=== PATIENT | female | born 1960 | race Hispanic/Latino ===

== ENCOUNTER → 2021-11-28 | Outpatient (CLI) | payer OTHER | END | disposition home or self-care (01) | LOC: SHCH 09:43 | PROVIDERS: ATTEND Internal Medicine Cardiovascular Disease | DX: R07.9 Chest pain, unspecified (principal) | CPT/HCPCS: 93306; 93970 ==

== ENCOUNTER → 2022-01-16 | Outpatient (CLI) | payer OTHER ==
[2022-01-16 12:34] LABS: BASOPHILS % (AUTO) 0.5 % (0.0-5.0); EOSINOPHILS % (AUTO) 1.1 % (0.0-8.0); HEMATOCRIT 43.1 % (36-48); LYMPHOCYTES % (AUTO) 19.5 % (21.0-51.0); MEAN CORPUSCULAR HEMOGLOBIN 29.5 pg (27.0-33.0); MEAN CORPUSCULAR HGB CONC 31.8 g/dL (32.0-36.0); MEAN CORPUSCULAR VOLUME 92.7 fL (79-99); MONOCYTES % (AUTO) 5.5 % (3.0-13.0); NEUTROPHILS % (AUTO) 73.2 % (40.0-77.0); PLATELET COUNT (AUTO) 243 K/uL (130-400); RED BLOOD CELL COUNT(AUTO) 4.65 MIL/uL (4.00-5.50); RED CELL DISTRIBUTION WIDTH 13.2 % (11.0-15.5); WHITE BLOOD COUNT (AUTO) 6.5 K/uL (4.8-10.8)
[2022-01-16 12:43] LABS: CREATININE 0.8 mg/dL (0.5-1.5); POTASSIUM 3.8 mmol/L (3.5-5.1)
[2022-01-16 12:54] LABS: INR 2.04 (0.85-1.15); PROTHROMBIN TIME 21.4 SEC (9.6-11.6)
[2022-01-16 12:55] LABS: PARTIAL THROMBOPLASTIN TIME 35.7 SEC (26.3-35.5)
== END | disposition home or self-care (01) ==
LOC: LAB 08:31
PROVIDERS: ATTEND Internal Medicine Cardiovascular Disease
DX: I87.1 Compression of vein (principal); I87.2 Venous insufficiency (chronic) (peripheral); R60.0 Localized edema; Z86.718 Personal history of other venous thrombosis and embolism; Z79.01 Long term (current) use of anticoagulants; Z79.899 Other long term (current) drug therapy
CPT/HCPCS: 36415; 80048; 85025; 85610; 85730

== ENCOUNTER 2022-03-18 07:25 | Day surgery (SDC) | payer OTHER ==
[2022-03-14 11:00] LABS: BASOPHILS % (AUTO) 0.7 % (0.0-5.0); EOSINOPHILS % (AUTO) 0.5 % (0.0-8.0); HEMATOCRIT 44.5 % (36-48); LYMPHOCYTES % (AUTO) 21.1 % (21.0-51.0); MEAN CORPUSCULAR HEMOGLOBIN 29.1 pg (27.0-33.0); MEAN CORPUSCULAR HGB CONC 31.7 g/dL (32.0-36.0); MEAN CORPUSCULAR VOLUME 91.9 fL (79-99); MONOCYTES % (AUTO) 4.3 % (3.0-13.0); NEUTROPHILS % (AUTO) 73.3 % (40.0-77.0); PLATELET COUNT (AUTO) 231 K/uL (130-400); RED BLOOD CELL COUNT(AUTO) 4.84 MIL/uL (4.00-5.50); RED CELL DISTRIBUTION WIDTH 12.8 % (11.0-15.5); WHITE BLOOD COUNT (AUTO) 7.7 K/uL (4.8-10.8)
[2022-03-14 11:13] LABS: INR 2.46 (0.85-1.15); PROTHROMBIN TIME 25.5 SEC (9.6-11.6)
[2022-03-14 11:14] LABS: PARTIAL THROMBOPLASTIN TIME 36.6 SEC (26.3-35.5)
[2022-03-14 11:16] LABS: CREATININE 0.7 mg/dL (0.5-1.5); POTASSIUM 4.2 mmol/L (3.5-5.1)
[2022-03-15 10:42] VITALS: BP 132/72
[2022-03-18] VITALS (21 sets, daily range): BP systolic 98–138; BP diastolic 50–72
[~2022-03-18] VITALS: Ht 168.9 cm; Wt 90.4 kg
[~2022-03-18 07:25] MED LIST: TOPI50TA24 PO; TRAZ150T79 PO; WARF-57 PO; WARF7.5T49 PO
[2022-03-18] MEDS ORDERED: 0.9%NACL 1000ML 1,000 ML IV ONE (07:43)
[2022-03-18 08:16] LABS: INR 1.09 (0.85-1.15); PROTHROMBIN TIME 11.8 SEC (9.6-11.6)
[2022-03-18 08:17] LABS: PARTIAL THROMBOPLASTIN TIME 30.5 SEC (26.3-35.5)
[2022-03-18] MEDS ORDERED: BIOT10006 PO (08:31)
[2022-03-18] MEDS ORDERED: VITA-348 PO (08:31)
[2022-03-18] MEDS ORDERED: CYCL-309 PO (08:31)
[2022-03-18] MEDS ORDERED: ENOX120D SQ (08:31)
[2022-03-18] MEDS ORDERED: ZINC50TA15 PO (08:31)
[2022-03-18] MEDS ORDERED: ASCO500C6 PO (08:31)
[2022-03-18] MEDS ORDERED: ERGO500093 PO (08:31)
[2022-03-18] MEDS ORDERED: CALC-1105 PO (08:31)
[2022-03-18] MEDS ORDERED: IODIXANOL 320 MG/ML 100 ML VIAL ONE ×2 (08:56→10:12)
[2022-03-18] MEDS ORDERED: NITROGLYCERIN 50MG VIAL ONE (08:56)
[2022-03-18] MEDS ORDERED: FENTANYL CITRATE PF 50 MCG/1 ML 2ML VIAL ONE ×2 (08:56→10:12)
[2022-03-18] MEDS ORDERED: LIDOCAINE HCL 400MG/20ML VIAL ONE (08:56)
[2022-03-18] MEDS ORDERED: MIDAZOLAM HCL 1 MG/ML 2ML VIAL ONE ×3 (08:56→10:56)
[2022-03-18] MEDS ORDERED: HEPARIN 10,000 UNIT/10ML (1,000 UNIT/ML) VIAL ONE ×2 (08:56→10:12)
[2022-03-18] MEDS ORDERED: GLUCAGON 1MG KIT 1 MG ML IM PRN (11:30)
[2022-03-18] MEDS ORDERED: DEXTROSE 50%-WATER 50 ML DISP.SYRIN IV PRN (11:30)
[2022-03-18] MEDS ORDERED: CLOPIDOGREL 300MG TAB ONE (11:49)
[2022-03-18] MEDS ORDERED: ATROPINE 1MG SYG IVP ONE (12:44)
== END 2022-03-18 16:20 | disposition home or self-care (01) ==
LOC: DAH 07:25
PROVIDERS: ATTEND Internal Medicine Cardiovascular Disease
DX: I87.1 Compression of vein (principal); D72.0 Genetic anomalies of leukocytes; I87.2 Venous insufficiency (chronic) (peripheral); E66.9 Obesity, unspecified; Z79.01 Long term (current) use of anticoagulants; Z79.899 Other long term (current) drug therapy; Z86.718 Personal history of other venous thrombosis and embolism; Z90.710 Acquired absence of both cervix and uterus; Z90.49 Acquired absence of other specified parts of digestive tract; Z98.890 Other specified postprocedural states; Z82.49 Family history of ischemic heart disease and other diseases of the circulatory system; Z83.3 Family history of diabetes mellitus; Z80.9 Family history of malignant neoplasm, unspecified; Z68.32 Body mass index [BMI] 32.0-32.9, adult
CPT/HCPCS: 80048; 85025; 85610 ×2; 85730 ×2; 36415 ×2; 37238; 37239; 36012; 75822; 37252; 37253 ×5; 85347; C1876 ×2; C1894 ×4; C1769 ×2; C1725; C1753; A4663; J3010; J3490 ×2; J7030; J1644 ×2; J2250 ×2; Q9967; A4215; A6402; A4657; A4222; A6260; A4221; A4216; A4606; A4223 ×3; 99156; 99157; J0461

== ENCOUNTER → 2022-10-01 | Outpatient (CLI) | payer OTHER ==
[~2022-10-01] MED LIST changes: +ASCO500C6 PO; +BIOT10006 PO; +CALC-1105 PO; +CYCL-309 PO; +ENOX120D SQ; +ERGO500093 PO; +TOPI-255 PO; -TOPI50TA24 PO; +VITA-348 PO; +ZINC50TA15 PO
[2022-10-01 16:30] LABS: CREATININE 0.8 mg/dL (0.5-1.5); POTASSIUM 4.1 mmol/L (3.5-5.1)
== END | disposition home or self-care (01) ==
LOC: LAB 13:05
PROVIDERS: ATTEND Internal Medicine Cardiovascular Disease
DX: I20.0 Unstable angina (principal)
CPT/HCPCS: 36415; 80048

== ENCOUNTER → 2022-10-18 | Outpatient (CLI) | payer OTHER ==
[~2022-10-18] MED LIST changes: +IOHEXOL 350 MG/ML 100ML INFUS..BTL IV ONE
== END | disposition home or self-care (01) ==
LOC: RAH 07:52
PROVIDERS: ATTEND Internal Medicine Cardiovascular Disease
DX: I20.0 Unstable angina (principal)
CPT/HCPCS: 75574; Q9967

== ENCOUNTER 2023-05-28 13:14 | Emergency (ER) | payer BC, OTHER ==
[~2023-05-28] VITALS: Ht 167.6 cm; Wt 91.6 kg
[~2023-05-28 13:14] MED LIST changes: -IOHEXOL 350 MG/ML 100ML INFUS..BTL IV ONE; -TOPI-255 PO; +TOPI-97 PO
[2023-05-28 18:17] LABS: BASOPHILS # (AUTO) 0.05 K/uL (0.00-0.20); BASOPHILS % (AUTO) 0.6 % (0.0-5.0); EOSINOPHILS # (AUTO) 0.09 K/uL (0.00-0.70); EOSINOPHILS % (AUTO) 1.1 % (0.0-8.0); HEMATOCRIT 41.9 % (36-48); IMMATURE GRANULOCYTE ABSOLUTE 0.02 K/uL (0-1); LYMPHOCYTES # (AUTO) 1.7 K/uL (1.0-4.8); MEAN CORPUSCULAR HEMOGLOBIN 29.4 pg (27.0-33.0); MEAN CORPUSCULAR HGB CONC 32.5 g/dL (32.0-36.0); MEAN CORPUSCULAR VOLUME 90.5 fL (79-99); MONOCYTES # (AUTO) 0.5 K/uL (0.1-1.0); MONOCYTES % (AUTO) 6.6 % (3.0-13.0); NEUTROPHILS # (AUTO) 5.6 K/uL (1.8-7.7); NEUTROPHILS % (AUTO) 70.4 % (40.0-77.0); PLATELET COUNT (AUTO) 217 K/uL (130-400); RED BLOOD CELL COUNT(AUTO) 4.63 MIL/uL (4.00-5.50)
[2023-05-28 18:26] LABS: CREATININE 0.9 mg/dL (0.5-1.0); POTASSIUM 3.9 mmol/L (3.5-5.1)
[2023-05-28 18:31] LABS: INR 1.39 (0.85-1.15)
[2023-05-28 18:33] LABS: PARTIAL THROMBOPLASTIN TIME 31.8 SEC (26.3-35.5)
[2023-05-28] MEDS ORDERED: IOHEXOL-350 75 ML VIAL IV ONE (20:03)
[2023-05-28] MEDS: ENOXAPARIN SODIUM 100 MG/1 ML SQ ONE (20:06)
[2023-05-28 22:03] VITALS: BP 126/60; PULSE 74; RESP 18; O2SAT 99
== END 2023-05-28 22:06 | disposition home or self-care (01) ==
LOC: EDH 13:14
DX: I82.402 Acute embolism and thrombosis of unspecified deep veins of left lower extremity (principal); I25.10 Atherosclerotic heart disease of native coronary artery without angina pectoris; Z79.01 Long term (current) use of anticoagulants; Z79.899 Other long term (current) drug therapy
CPT/HCPCS: 99285; 71270; 93971; 84484; 80048; 85025; 85378; 85610; 85730; 36415; 93005; 96372; J1650; Q9967

== ENCOUNTER → 2023-06-25 | Outpatient (CLI) | payer OTHER | END | disposition home or self-care (01) | LOC: OIH 09:23 | PROVIDERS: ATTEND Internal Medicine Cardiovascular Disease | DX: Z13.6 Encounter for screening for cardiovascular disorders (principal) | CPT/HCPCS: 75571 ==